=== PATIENT | male | born 1955 | race Hispanic/Latino ===

== ENCOUNTER 2022-04-22 11:04 | Outpatient (CLI) | payer MEDICAID, SELFPAY ==
--- NOTE | ~2022-04-22 | XR_ITS ---
EXAMINATION: XR chest 2V 04/22/2022 11:25 INDICATION: Preop evaluation. PROCEDURE: 2 view chest COMPARISON: 12/20/2013 FINDINGS: The lungs are clear. The cardiomediastinal silhouette is within normal limits. There are no pleural effusions. There is no pneumothorax suspected. IMPRESSION: 1: NO ACUTE CARDIOPULMONARY DISEASE. Reviewed, dictated and finalized at location L. 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
== END 2022-04-22 11:05 | disposition home or self-care (01) ==
LOC: ANHIMG 11:11
PROVIDERS: PCP Physician Assistant; Visit Provider Physician Assistant
DX: Z01.818 Encounter for other preprocedural examination (principal)
CPT/HCPCS: 71046

== ENCOUNTER 2022-05-26 07:52 | Outpatient (CLI) | payer MEDICAID, SELFPAY ==
--- NOTE | ~2022-05-26 | NM_ITS ---
EXAMINATION: NM josue stress w perfusion DATE: 05/26/2022 10:30 INDICATION: Other forms of dyspnea. TECHNIQUE: Rest images were obtained following intravenous administration of 11 mCi Tc99m tetrofosmin (Myoview). The patient was infused intravenously with Lexiscan (regadenoson). Then, 34.5 mCi Tc99m t etrofosmin (Myoview) was administered intravenously, and supine and prone stress images were obtained . Data was reconstructed into short axis and horizontal and vertical long axis SPECT images. Gated SP ECT images were also obtained. COMPARISON: None. FINDINGS: There is increased activity below the diaphragm, which decreases sensitivity and specificit y in the inferior wall. There is no definite reversible or fixed perfusion abnormality to suggest isc hemia or infarction. There is no segmental wall motion abnormality. Left ventricular ejection fract ion measures 57%. IMPRESSION: 1. No definite ischemia or infarct. 2. Normal left ventricular ejection fraction measuring 57%. Reviewed, dictated and finalized at location D.
--- NOTE | 2022-05-26 07:55 | EST_ITS ---
Patient Info Name: Marshall Hinojosa Age: 66 years : 1955 Gender: Male Ht: 66 in Wt: 120 lbs BSA: 1.59 m2 HR: 60 bpm BP: 152 / 60 mmHg Heart Rhythm: Sinus Rhythm Exam Date: 05/26/2022 9:07 AM Exam Location: [facility] Stress Patient Status: Outpatient Admit Date: 05/26/2022 Staff Ordering Physician: Buster Jennings DO Attending Provider: Buster Jennings DO Exercise Technologist: Lena Dupont CT Exercise Physician: Buster Jennings DO Exam Type: CA stress josue w NM Study Info Indications R06.09 - Other forms of dyspnea A regadenoson stress test was performed. Summary 1. 1. Negative lexiscan stress test for ischemic ST changes by ECG criteria. 2. 2. Baseline hypertension. 3. 3. Nuclear scan to follow and will be reported separately. Please correlate with it. 4. 4. Patient informed of the above results. Protocol: Lexiscan Stress ECG Details Stage: REST Duration (min): 0 min : 50 sec HR (bpm): 59 SBP (mmHg): 152 DBP (mmHg): 85 Stage: REST Duration (min): 6 min : 54 sec HR (bpm): 62 SBP (mmHg): 152 DBP (mmHg): 85 Stage: STAGE 1 Duration (min): 0 min : 59 sec HR (bpm): 73 SBP (mmHg): 167 DBP (mmHg): 65 Stage: RECOVERY Duration (min): 1 min : 0 sec HR (bpm): 80 SBP (mmHg): 167 DBP (mmHg): 65 Stage: RECOVERY Duration (min): 2 min : 0 sec HR (bpm): 76 SBP (mmHg): 167 DBP (mmHg): 65 Stage: RECOVERY Duration (min): 3 min : 0 sec HR (bpm): 72 SBP (mmHg): 144 DBP (mmHg): 70 Stage: RECOVERY Duration (min): 3 min : 10 sec HR (bpm): 73 SBP (mmHg): 144 DBP (mmHg): 70 Rest HR: 62 bpm Peak HR: 80 bpm Rest Sys BP: 152 mmHg Peak Sys BP: 167 mmHg Max Pred HR: 156 bpm % Max Pred HR: 51 % Target HR: 133 bpm Max RPP: 13,360 bpm*mmHg Termination Reason: Completed protocol Cardiac Symptoms: Shortness of breath Total Time: 1 min : 0 sec Rest Peterson BP: 85 mmHg Peak Peterson BP: 65 mmHg Total Dose: 0.4 mg Resting ECG Sinus rhythm. Stress ECG No ST changes. Arrhythmias None. Report Signatures
== END 2022-05-26 07:53 | disposition home or self-care (01) ==
LOC: ANHCARD 07:54
PROVIDERS: PCP Physician Assistant; Visit Provider Internal Medicine Cardiovascular Disease
DX: R06.09 Other forms of dyspnea (principal)
CPT/HCPCS: 78452; 93017; A9502; J2785

== ENCOUNTER 2024-10-28 18:15 | Emergency (ER) | payer OTHER, SELFPAY ==
--- NOTE | ~2024-10-28 | CT_ITS ---
EXAMINATION: CT lumbar spine wo con DATE: 10/28/2024 21:27 INDICATION: Low back pain TECHNIQUE: Computed tomography (CT) of the lumbar spine was performed without intravenous contrast. The dose-length product was 215.57 mGy-cm. Automated exposure control and iterative reconstruction technique were employed. COMPARISON: None FINDINGS: There is a chronic-appearing burst fracture of L1 with retropulsion into the canal. There is approximately 80% loss of vertebral body height. There is a superior endplate compression fracture of L4, also likely chronic. There is approximately 20% loss of vertebral body height. No paraspinal soft tissue abnormality. There is atherosclerosis. At L3-4 there is broad-based annular disc bulging with facet hypertrophy without significant spinal stenosis. At L4-5 there is endplate hypertrophy, facet hypertrophy creating bilateral neural foraminal narrowing. IMPRESSION: 1. Chronic-appearing burst fracture of L1 and superior endplate compression fracture of L4. 2: Mild bilateral neural foraminal narrowing at L4-5. Reviewed, dictated and finalized at location O. IMPRESSION: 1. Chronic-appearing burst fracture of L1 and superior endplate compression fra cture of L4. 2: Mild bilateral neural foraminal narrowing at L4-5.
[2024-10-28 18:23] VITALS: BP 164/76; PULSE 73; RESP 20; TEMP 36.8; O2SAT 100
[2024-10-28 20:29] VITALS: BP 183/83; PULSE 63; RESP 18; O2SAT 100
--- NOTE | 2024-10-28 21:14 | ED.BACK ---
HPI - Back Pain/Injury General Chief Complaint: Back Pain/Injury Stated Complaint: lower back pain rad to L legs Time Seen by Provider: 10/28/24 20:29 History of Present Illness HPI Narrative: Patient is a 68-year-old male who presents to the ER with left-sided low back pain. He reports it started approximately 1 week ago but today it became significantly worse. Patient endorses increased pain with ambulation and movement. He endorses a history of osteoporosis, diabetes, and high blood pressure. Patient denies any loss of continence, saddle anesthesia, numbness/tingling in his lower extremities, or visible swelling. Related Data Home Medications ?Medication ?Instructions ?Recorded ?Confirmed ?Last Taken ?Type empagliflozin 25 mg tablet 25 mg PO DAILY 05/08/22 01/20/24 Unknown History (Jardiance) escitalopram oxalate 5 mg tablet 5 mg PO DAILY 05/08/22 01/20/24 Unknown History gabapentin 800 mg tablet 800 mg PO TID 05/08/22 01/20/24 Unknown History glimepiride 2 mg tablet 2 mg PO QAM 05/08/22 01/20/24 Unknown History simvastatin 20 mg tablet 20 mg PO DAILY 05/08/22 01/20/24 Unknown History ibuprofen 800 mg tablet 800 mg PO Q6H 12/30/22 01/20/24 Unknown History multivitamin 1 tablet PO DAILY 01/20/24 01/20/24 Unknown History Allergies Allergy/AdvReac Type Severity Reaction Status Date / Time No Known Allergies Allergy Verified 10/28/24 18:17 Review of Systems Review of Systems: All systems reviewed & are unremarkable except as noted in HPI and below PMFSH Social History Social History Smoking status: Former smoker Alcohol intake: never Substance use: never Lack of Transportation: No Lack of Food: Sometimes True Current Housing: I Have Housing Concerned About Future Housing: No Difficulty Paying Gas/Electric Bills: No Difficulty Paying for Meds: No Currently Unemployed: No Difficulty w/ Childcare or Family Care: No Living arrangements: with family Occupation/Education: unemployed Gender identity (if verbalized by the patient): Male Sexual Orientation (if Verbalized by the Patient): Straight or Heterosexual Exam Narrative: GENERAL: Well appearing, well-nourished, non-toxic, in no acute distress. HEAD: Normocephalic, atraumatic. NECK: Supple. No adenopathy, no masses. RESPIRATORY: Airway patent, respirations nonlabored. Clear to auscultation bilaterally, no rales, rhonchi, wheezing. CARDIOVASCULAR: Regular rate and rhythm without murmurs, rubs, or gallops. Peripheral pulses 2+ and equal bilaterally. ABDOMINAL: Soft, nontender, nondistended, no hepatosplenomegaly. Normoactive BS. MUSCULOSKELETAL: Moves all extremities. Strength/ROM intact without gross deformities. + L straight leg test SKIN: Warm, dry, normal color. No rashes. NEURO: A&O X3. Speech clear. Cranial nerves II-XII intact. No ataxic movements. PSYCHIATRIC: Appropriate mood and affect. Normal interaction. Course Vital Signs Vital signs: Vital Signs Temperature 36.8 C 10/28/24 18:23 Pulse Rate 73 10/28/24 18:23 Respiratory Rate 20 10/28/24 18:23 Blood Pressure 164/76 H 10/28/24 18:23 Pulse Oximetry 100 10/28/24 18:23 Oxygen Delivery Room Air 10/28/24 18:23 Temperature 36.8 C 10/28/24 18:23 Pulse Rate 63 10/28/24 20:29 Respiratory Rate 18 10/28/24 20:29 Blood Pressure 183/83 H 10/28/24 20:29 Pulse Oximetry 100 10/28/24 20:29 Oxygen Delivery Room Air 10/28/24 20:29 MDM - Back Pain/Injury MDM Narrative Medical decision making narrative: Patient is a 68-year-old male who presents to the ER with left-sided low back pain. He reports it started approximately 1 week ago but today it became significantly worse. Patient endorses increased pain with ambulation and movement. He endorses a history of osteoporosis, diabetes, and high blood pressure. Patient denies any loss of continence, saddle anesthesia, numbness/tingling in his lower extremities, or visible swelling. Labs Ordered: UA Imaging Ordered: CT lumbar Medications Ordered: Toradol 60 mg IM Results: Pt's CT lumbar indicates Chronic-appearing burst fracture of L1 and superior endplate compression fracture of L4. 2: Mild bilateral neural foraminal narrowing at L4-5. Diagnosis: lumbar radiculopathy, compression fracture Consults: neurosurgery (outpatient) Patient Education/Shared MDM: Results of imaging shared with patient and his family. He reports his pain is better but is still significant with movement. Patient will be given a dose of Torrance here in the ER. Patient strongly advised to maintain hydration status upon discharge and follow-up with Neurosurgery as soon as possible. An order for an LSO will be sent to [facility] so pt can be fitted for a back brace. He will be discharged home with a prescription for Torrance. Strict return precautions provided. Patient verbalized understanding and is in agreement with plan. Vital signs stable at time of discharge. All questions answered. Differential Diagnosis Differential diagnosis: Likely lumbar radiculopathy, sciatica and strain of lumbar region Lab Data Attestation: I reviewed the patient's lab results. Labs: Lab Results 10/28/24 Range/Units 21:33 Urine Color Yellow (Yellow) Urine Appearance Clear (Clear) Urine pH 5.5 (5.0-9.0) Ur Specific [place] 1.044 H (1.001-1.035) Urine Protein Negative (Negative) mg/dL Urine Glucose (UA) 3+ H (Negative) mg/dL Urine Ketones Trace H (Negative) mg/dL Ur Blood (Man) Negative (Negative) Urine Nitrate Negative (Negative) Urine Bilirubin Negative (Negative) Urine Urobilinogen 1.0 (<2.0) mg/dL Leukocyte Esterase Rfl Negative (Negative) DARNELL/UL Imaging Data Attestation: I personally reviewed and interpreted this imaging study as follows: Radiologist's impression: Impressions Lumbar Spine CT 10/28/24 21:40 IMPRESSION: 1. Chronic-appearing burst fracture of L1 and superior endplate compression fracture of L4. 2: Mild bilateral neural foraminal narrowing at L4-5. Discharge Plan Discharge Clinical Impression: Sciatica, Burst fracture of lumbar vertebra, Compression fracture of L4 vertebra Patient Disposition: Home Condition: Stable Instructions: Antibiotic Form, Sciatica (ED) Additional Instructions: Please return to the ER with any worsening symptoms. Follow-up with Neurosurgery as soon as possible. [facility] will contact you regarding back brace placement. Take all medications as prescribed, including regularly scheduled medications. You may take ibuprofen and Torrance for pain control. Patient Language: Occitan Prescriptions: New hydrocodone-acetaminophen 5-325 mg tablet 1 tablet PO Q6H PRN (Reason: pain) Qty: 20 0RF ibuprofen 800 mg tablet 800 mg PO TID PRN (Reason: pain) Qty: 30 0RF No Action gabapentin 800 mg tablet 800 mg PO TID escitalopram oxalate 5 mg tablet 5 mg PO DAILY Jardiance 25 mg tablet 25 mg PO DAILY glimepiride 2 mg tablet 2 mg PO QAM Rx Instructions: administer with breakfast simvastatin 20 mg tablet 20 mg PO DAILY ibuprofen 800 mg tablet 800 mg PO Q6H multivitamin Tablet 1 tablet PO DAILY Follow-up/Referrals: Tej,LEDY Ratliff [Primary Care Provider, Family Practice] Markos Castro M.D. [Physician, Neurosurgery] Referral Note: primary care provider Time of Disposition: 22:37
[2024-10-28] MEDS: KETOROLAC (*BKC) 60 MG/2 ML VIAL IM (21:31)
[2024-10-28 21:38] LABS: Add Urine Microscopic? NO; Appearance Urine Clear (Clear); Glucose Urine UA 3+ mg/dL (Negative); Leukocyte Esterase Ur Negative LEU/UL (Negative); Nitrate Urine Negative (Negative); Specific Grav Ur 1.044 (1.001-1.035)
[2024-10-28] MEDS: HYDROcodone/acetaminophen (*CRX) 5-325 MG TABLET 1 TAB PO (22:27)
[2024-10-28 22:29] VITALS: BP 173/87; PULSE 61; RESP 18; O2SAT 100
== END 2024-10-28 22:45 | disposition home or self-care (01) ==
PROVIDERS: Emergency Provider Registered Nurse; PCP Physician Assistant
DX: S32.011A Stable burst fracture of first lumbar vertebra, initial encounter for closed fracture (principal); S32.040A Wedge compression fracture of fourth lumbar vertebra, initial encounter for closed fracture; M54.42 Lumbago with sciatica, left side; I10 Essential (primary) hypertension; E11.9 Type 2 diabetes mellitus without complications; M81.0 Age-related osteoporosis without current pathological fracture; Z87.891 Personal history of nicotine dependence; Z79.84 Long term (current) use of oral hypoglycemic drugs; Z79.899 Other long term (current) drug therapy; X50.0XXA Overexertion from strenuous movement or load, initial encounter
CPT/HCPCS: 72131; 81003; 96372; 99284; A9270; J1885

== ENCOUNTER 2024-11-10 10:30 | Outpatient (CLI) | payer OTHER, SELFPAY ==
--- NOTE | ~2024-11-10 | XR_ITS ---
XR lumbar spine 2-3V Indication: S32.040A - Wedge compression fracture of fourth lumbar ve... Comparison: None Findings: There is a compression fracture of L1 with loss of high 90% and kyphosis. There is a fracture of L4 with loss of height 30%, no retropulsion. Moderate loss of disc height at T12-L1 and L1-2. Soft tissues unremarkable Impression: Fractures detailed above Reviewed, dictated and finalized at location A. Impression: Fractures detailed above
== END 2024-11-10 10:31 | disposition home or self-care (01) ==
PROVIDERS: Visit Provider Nurse Practitioner Adult Health
DX: S32.040A Wedge compression fracture of fourth lumbar vertebra, initial encounter for closed fracture (principal); X58.XXXA Exposure to other specified factors, initial encounter
CPT/HCPCS: 72100

== ENCOUNTER 2024-12-09 11:07 | Outpatient (CLI) | payer OTHER, SELFPAY ==
--- NOTE | ~2024-12-09 | XR_ITS ---
XR lumbar spine 2-3V Indication: S32.000A - Wedge compression fracture of unspecified lumb... Comparison: None Findings: Remote fracture of L1 with loss of high 90% with kyphosis. Remote fracture of L4 with loss of height 50%. No acute fracture or subluxation. Moderate loss of disc height throughout Soft tissues unremarkable Impression: No acute abnormality. Reviewed, dictated and finalized at location P. Impression: No acute abnormality.
== END 2024-12-09 11:08 | disposition home or self-care (01) ==
PROVIDERS: PCP Physician Assistant; Visit Provider Nurse Practitioner Adult Health
DX: S32.000A Wedge compression fracture of unspecified lumbar vertebra, initial encounter for closed fracture (principal); X58.XXXA Exposure to other specified factors, initial encounter
CPT/HCPCS: 72100

== ENCOUNTER 2025-01-27 14:08 | Outpatient (CLI) | payer OTHER, SELFPAY ==
--- NOTE | ~2025-01-27 | MR_ITS ---
EXAMINATION: MR lumbar spine wo con DATE: 01/27/2025 14:46 INDICATION: Wedge compression fracture of unspecified vertebra. TECHNIQUE: Magnetic resonance imaging (MRI) of the lumbar spine was performed without intravenous contrast. COMPARISON: Lumbar spine radiographs 01/27/2025, 12/09/2024 FINDINGS: There is 6 degrees levocurvature of lumbar spine. There is mild chronic anterior wedging of L1 and L2 vertebral bodies. There is a chronic burst fracture of L1 with 4/5 loss of height centrally and retropulsion of bone 2 mm into central spinal canal. There is a burst fracture of L4 with 3/5 loss of height, edema-like marrow signal intensity, and retropulsion of bone 3 mm into central spinal canal. There is mild chronic height loss of L5 vertebral body posteriorly. There are bridging endplate osteophytes at T12-L1. There is mildly decreased disc height at L1-L2, L2-L3, and L4-L5. 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 The distal spinal cord signal intensity is normal. The conus medullaris is at L1. The following disc levels are specifically discussed: L1-L2: The disc is bulging. There is mild bilateral facet joint osteoarthritis. There is mild bilateral neural foraminal stenosis. There is mild central canal stenosis. L2-L3: The disc is bulging. There is severe bilateral facet joint osteoarthritis. There is mild bilateral neural foraminal stenosis. There is mild central canal stenosis. L3-L4: The disc is bulging and has an annular fissure. There is severe bilateral facet joint osteoarthritis. There is moderate right and mild left neural foraminal stenosis. There is mild central canal stenosis. L4-L5: The disc is bulging and has an annular fissure. There is severe bilateral facet joint osteoarthritis. There is moderate bilateral neural foraminal stenosis. There is mild central canal stenosis. L5-S1: The disc is bulging. There is severe bilateral facet joint osteoarthritis. There is mild bilateral neural foraminal stenosis. There is mild central canal stenosis. IMPRESSION: 1. Subacute burst fracture of L4, stable from 12/09/2024. 2. Moderate lumbar spondylosis. Reviewed, dictated and finalized at location E. 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
--- NOTE | ~2025-01-27 | XR_ITS ---
XR lumbar spine 2-3V Indication: S32.000A - Wedge compression fracture of unspecified lumb... Comparison: None Findings: Moderate osteopenia. Moderate loss of vertebral height throughout. Severe remote compression fractures of L1 and L4 with loss of height L1 90% loss of height L4 50%. Moderate to severe loss of disc height throughout. Soft tissues unremarkable Impression: No acute abnormality. Reviewed, dictated and finalized at location P. 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
== END 2025-01-27 14:09 | disposition home or self-care (01) ==
PROVIDERS: PCP Physician Assistant; Visit Provider Nurse Practitioner Adult Health
DX: M47.896 Other spondylosis, lumbar region (principal); S32.041D Stable burst fracture of fourth lumbar vertebra, subsequent encounter for fracture with routine healing; X58.XXXD Exposure to other specified factors, subsequent encounter
CPT/HCPCS: 72100; 72148

== ENCOUNTER 2025-02-14 08:16 | Day surgery (SDC) | payer OTHER, SELFPAY ==
[2025-02-10 14:33] VITALS: BMI 23.6
--- NOTE | ~2025-02-14 | XR_ITS ---
XR fluoroscopy no charge Indication:left L4-5 transforaminal epidural steroid injection TECHNIQUE: Fluoroscopy used during left L4-5 transforaminal epidural steroid injection performed by [Pablo Cuenca MD] on 02/14/2025. 49 seconds of fluoroscopy with 5 fluoroscopic images captured. FINDINGS: Correlate with procedure note. IMPRESSION: Fluoroscopy used during left L4-5 transforaminal epidural steroid injection. Reviewed, dictated and finalized at location O. 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
--- NOTE | 2025-02-14 09:05 | WPDHPUPDATE1 ---
History and Physical Update Update Date/Time: 02/14/25 09:05 History and Physical has been reviewed, including an updated exam of the patient. There are NO changes in the patient's condition. Risks, benefits, and alternatives have been discussed and questions answered. Patient agrees to proceed with procedure.
--- NOTE | 2025-02-14 09:05 | W.PM.PROC2 ---
Procedure Note - Detailed Date of Procedure 02/14/25 Pre-op Diagnosis Radiculopathy, lumbar region Post-op Diagnosis Same Procedure Performed Left Lumbar Transforaminal Epidural Steroid Injection under Fluoroscopic Guidance and with Contrast Control at L4-5. Surgeon Pablo Cuenca MD Anesthesia Local Description of Procedure INFORMED CONSENT: Risks, benefits and alternatives to the procedure were discussed in detail with the patient who expressed explicit understanding and consent to proceed. Patient was informed verbally and in written form regarding the risks associated with the procedure including the low risk of serious infection, bleeding/bruising, allergic reaction, nerve or organ injury, paralysis, procedural site pain or discomfort, worsening pain and/or mobility, failure to treat and/or disfigurement. The patient expressed explicit understanding and consent to proceed. All materials required for the procedure were available prior to procedure start. Site and side was marked prior to procedure and confirmed in the presence of the patient. PROCEDURE IN DETAIL: The patient was brought to the procedural suite and placed in the prone position. Patient was made comfortable with use of pillows under the head/chest, hips and ankles. Skin overlying the injection site was prepared broadly with ChloraPrep applicator and draped in a sterile manner. Aseptic technique was employed throughout. The endplates of the vertebral body at the site of interest were aligned in the AP view. Ipsilateral oblique angulation was utilized to better visualize the neuroforamen of interest. Local anesthesia was established by infiltration with approximately 5 mL of 0.5% PF lidocaine via a 1-1/2 inch 27-gauge needle. A 22-gauge 3.5 inch Bettye (pencil point) spinal needle was advanced until the needle approached the 6 o'clock position on the pedicle just superior to the exiting nerve root. on the left at L4-5. Lateral view was utilized to confirm appropriate position of the needle tip within the superior and posterior portion of the respective foramen. In an AP view, 1 mL of Omnipaque 300 contrast medium was injected after negative aspiration for CSF, blood or other bodily fluid, showing appropriate neurogram without evidence of intravascular or intrathecal spread of contrast. Digital subtraction imaging was used with an additional 1ml of the same contrast medium to confirm absence of intravascular contrast spread. A 1mL solution containing 10 mg of dexamethasone was injected after negative repeat aspiration. Appropriate spread of the injectate was confirmed with washout of previously injected contrast. No parasthesias were elicited. Needle was removed completely intact without difficulty. Images were saved and documented in the patient chart. Patient's skin was cleaned and sterile bandage applied. The patient tolerated the procedure well. The patient was transported to the recovery area in stable condition where they were observed for an appropriate amount of time prior to discharge, without evidence of complication. The patient was instructed to avoid excessive activity for the next 48 hours, including climbing and frequent use of stairs. Showers only for 48 hours. They were instructed not to drive or operate heavy machinery for 24 hours. They are to monitor for severe headaches, fevers, chills, night sweats, erythema/swelling at the site or any other signs of infection, bleeding/bruising, bowel or bladder changes as well as new pain, weakness or numbness in the upper or lower extremity. Should they notice these changes, they are instructed to call our office immediately or report directly to the nearest Emergency Department if no answer or if after posted office hours. COMPLICATIONS: None COMMENTS: None CONTRAST WASTED: 28 mL Omnipaque 300. STEROID WASTED: 0 mg of dexamethasone. Complications No immediate complications Condition Stable Disposition Same day [facility] Billing Surgery - Charge Forward: Surgery Billing
[2025-02-14 09:26] VITALS: BMI 23.5
[2025-02-14 09:27] VITALS: BP 120/77; PULSE 80; RESP 16; TEMP 36.8; O2SAT 99
[2025-02-14 09:42] VITALS: BP 143/77; PULSE 74; RESP 18; O2SAT 100
[2025-02-14] MEDS: LIDOCAINE 2% PF LOCAL INJ 5 ML VIAL INFILTRATE (09:44)
[2025-02-14] MEDS: LIDOCAINE 1% PF INJ 5 ML VIAL INFILTRATE (09:44)
[2025-02-14] MEDS: DEXAMETHASONE SODIUM PHOSP/PF 10 MG/ML 1 ML VIAL (09:45)
[2025-02-14 09:47] VITALS: BP 140/73; PULSE 75; RESP 12; O2SAT 99
[2025-02-14 09:52] VITALS: BP 131/84; PULSE 73; RESP 16; O2SAT 100
== END 2025-02-14 10:05 | disposition home or self-care (01) ==
PROVIDERS: PCP Physician Assistant; Visit Provider Anesthesiology Pain Medicine
PROC: (CPT 64483; principal; 2025-02-14 09:55)
DX: M54.16 Radiculopathy, lumbar region (principal)
CPT/HCPCS: 64483; 99199